=== PATIENT | female | born 1970 | race Caucasian/White ===

== ENCOUNTER 2017-02-23 13:22 | Emergency (ER) | payer MEDICAID, OTHER ==
[~2017-02-23] VITALS: Ht 154.9 cm; Wt 77.3 kg
[2017-02-23 13:48] VITALS: Ht 154.9 cm; Wt 77.3 kg
[2017-02-23] MEDS ORDERED: METOCLOPRAMIDE 10 MG INJ IV STA (13:55)
[2017-02-23] MEDS ORDERED: SOD CHLORIDE 0.9% 1,000 ML IV STA (13:55)
[2017-02-23] MEDS ORDERED: DIPHENHYDRAMINE 50 MG INJ IV ONE (14:00)
[2017-02-23] MEDS ORDERED: HYDR200T5 PO (14:22)
[2017-02-23] MEDS ORDERED: CEFTRIAXONE 1 GM/50 ML (PMX) 50 ML IVPB ONE (16:30)
--- NOTE | 2017-02-23 16:40 | RADRPT ---
PROCEDURE: CT Brain without contrast. CLINICAL INDICATION: Severe headache and vertigo. TECHNIQUE: A CT of the brain was performed on a multidetector CT scanner utilizing axial sections from the skull base through the vertex without contrast. Images were reviewed on a high-resolution [employer] workstation. Exam CTDI = 44.84 mGy and the DLP = 720.23 mGy-cm. One or more of the following dose reduction techniques were used: Automated exposure control Adjustment of the mA and/or kV according to patient size. Use of iterative reconstruction technique. COMPARISON: None available FINDINGS: There is no evidence of intracranial hemorrhage, mass effect or midline shift. No abnormal intra-ax ial or extra-axial fluid collections are seen. The density of the brain is normal and the silva/whit e matter differentiation is well preserved. The osseous structures are unremarkable. The paranasal sinuses are clear. IMPRESSION: 1. No intracranial hemorrhage, mass effect or midline shift. RPTAT: BB .Bev Birmingham MD, MD Date Time Electronically viewed and signed by .Bev Birmingham MD, on 02/23/2017 16:39 .O/
[2017-02-23] MEDS ORDERED: CIPR500T4 PO (17:07)
[2017-02-23] MEDS ORDERED: FIORICET PO (17:07)
[2017-02-23] MEDS ORDERED: PROC10TA10 PO (17:07)
--- NOTE | 2017-02-23 17:16 | ERD ---
ER Documentation Chief Complaint Chief Complaint ROACH X 3 DAYS, PMD SENT OVER DUE TO CONCERNS FOR POSS MENENGITIS HPI This 46 year old female presents with headache for the last 5 days. Began gradually got worse. Frontal headache that goes around both sides to the back of her head. She gets headaches fairly frequently and they often respond to Tylenol or ibuprofen. In this case. She also had vertigo 2 weeks ago which was resolved with meclizine from her primary care doctor. Primary care doctor said he was worried about meningitis. Patient has no neck stiffness and has had no fevers. ROS All systems reviewed and are negative except as per history of present illness. Medications Home Meds Active Scripts Prochlorperazine* (Prochlorperazine*) 10 Mg Tablet, 10 MG PO Q6H Y for NAUSEA, # 10 TAB Prov:RAISA XIAO DO 02/23/17 Acetamin/Butalbital/Caffeine* (Fioricet*) [id number] Tab, 1 TAB PO Q4H Y for HEADACHE, #14 TAB Prov:JENA XIAOUA DO 02/23/17 Ciprofloxacin Hcl* (Ciprofloxacin Hcl*) 500 Mg Tablet, 500 MG PO BID for 5 Days , TAB Prov:RAISA XIAO DO 02/23/17 Reported Medications Hydroxychloroquine Sulfate* (Plaquenil*) 200 Mg Tab, 200 MG PO DAILY, TAB 02/23/17 Allergies Allergies: Coded Allergies: No Known Allergy (Unverified , 02/23/17) PMhx/Soc History of Surgery: No Anesthesia Reaction: No Hx Neurological Disorder: No Hx Respiratory Disorders: No Hx Cardiac Disorders: Yes (HTN) Hx Psychiatric Problems: No Hx Miscellaneous Medical Probl: Yes (LUPUS) Hx Alcohol Use: No Hx Substance Use: No Hx Tobacco Use: No Smoking Status: Never smoker Physical Exam Vitals Vital Signs Date Time Temp Pulse Resp B/P Pulse Ox O2 Delivery O2 Flow Rate FiO2 02/23/17 13:48 97.6 64 16 187/88 100 Physical Exam Const: [] Moderate distress, appears uncomfortable Head: Atraumatic Eyes: Normal Conjunctiva EOMI, PERRLA ENT: Normal External Ears, Nose and Mouth. Neck: Full range of motion..~ No meningismus. Resp: Clear to auscultation bilaterally Cardio: Regular rate and rhythm, no murmurs Abd: Soft, non tender, non distended. Normal bowel sounds Skin: No petechiae or rashes Back: No midline or flank tenderness Ext: No cyanosis, or edema Neur: Awake and alert and oriented 3, cranial nerves II through XII intact, no cerebellar deficits finger-nose, normal gait no focal weakness Psych: Normal Mood and Affect Result Diagram: 02/23/17 1400 02/23/17 1400 Results 24 hrs Laboratory Tests Test 02/23/17 14:00 02/23/17 14:12 White Blood Count 9.310^3/ul Red Blood Count 5.3710^6/ul Hemoglobin 14.9g/dl Hematocrit 45.3% Mean Corpuscular Volume 84.4fl Mean Corpuscular Hemoglobin 27.7pg Mean Corpuscular Hemoglobin Concent 32.9g/dl Red Cell Distribution Width 13.5% Platelet Count 7010^3/UL Mean Platelet Volume 12.0fl Neutrophils % % Segmented Neutrophils % (Manual) 36% Lymphocytes % % Lymphocytes % (Manual) 59% Monocytes % % Monocytes % (Manual) 4% Eosinophils % % Eosinophils % (Manual) 1% Basophils % % Nucleated Red Blood Cells % 0.0/100WBC Neutrophils # 10^3/ul Absolute Lymphocytes (Manual) 5.410^3/ul Lymphocytes # 10^3/ul Monocytes # 10^3/ul Absolute Monocytes (Manual) 0.310^3/ul Eosinophils # 10^3/ul Basophils # 10^3/ul Nucleated Red Blood Cells # 10^3/ul Platelet Estimate DECREASED Platelet Morphology Comment @See below Sodium Level 144mmol/L Potassium Level 4.3mmol/L Chloride Level 110mmol/L Carbon Dioxide Level 20mmol/L Anion Gap 18 Blood Urea Nitrogen 19mg/dl Creatinine 0.91mg/dl Glucose Level 84mg/dl Calcium Level 9.3mg/dl Total Bilirubin 0.2mg/dl Direct Bilirubin 0.00mg/dl Indirect Bilirubin 0.2mg/dl Aspartate Amino Transf (AST/SGOT) 36IU/L Alanine Aminotransferase (ALT/SGPT) 33IU/L Alkaline Phosphatase 92IU/L Total Protein 9.4g/dl Albumin 4.6g/dl Globulin 4.80g/dl Albumin/Globulin Ratio 0.95 Urine Color YELLOW Urine Clarity CLEAR Urine pH 5.0 Urine Specific [place] 1.010 Urine Ketones NEGATIVEmg/dL Urine Nitrite POSITIVEmg/dL Urine Bilirubin NEGATIVEmg/dL Urine Urobilinogen NEGATIVEmg/dL Urine Leukocyte Esterase 1+Mer/ul Urine Microscopic RBC 1/HPF Urine Microscopic WBC 10/HPF Urine Bacteria MODERATE/HPF Urine Mucus FEW/HPF Urine Hemoglobin NEGATIVEmg/dL Urine Glucose NEGATIVEmg/dL Urine Total Protein NEGATIVEmg/dl Current Medications Medications (Trade) Dose Ordered Sig/Danni Route PRN Reason Start Time Stop Time Status Last Admin Dose Admin Sodium Chloride (NS) 1,000 ml @ 1,000 mls/hr Q1H STAT IV 02/23/17 13:55 02/23/17 14:54 DC 02/23/17 13:55 Metoclopramide HCl (Reglan) 10 mg ONCE STAT IV 02/23/17 13:55 02/23/17 13:57 DC 02/23/17 13:55 Diphenhydramine HCl 12.5 mg 12.5 mg ONCE ONCE IV 02/23/17 14:00 02/23/17 14:01 DC 02/23/17 14:59 Ceftriaxone Sodium (Rocephin) 50 ml @ 100 mls/hr ONCE ONCE IVPB 02/23/17 16:30 02/23/17 16:59 DC 02/23/17 16:07 Procedures/MDM Urinary tract infection with acute headache. Patient was given a liter of normal saline as well as 12.5 mg of IV Benadryl and 10 mg of Reglan as a migraine headache cocktail. This was completely resolved her headache. She is feeling much better. She is also given a gram of Rocephin. Head CT was performed because of frequent headaches with vertigo negative for abnormal mass or any acute process. Vital signs and laboratories are stable. I am going to discharge her with 5 days of ciprofloxacin. Also discharging with Fioricet and Compazine for headaches. Her care follow-up in 2-3 days and return precautions. I have printed her laboratories to take with her primary care doctor and address the thrombocytopenia. Strict return precautions to the ER. CT head interpretation: I see no acute process. I see no hemorrhage, no mass- effect, no midline shift. Patient also has no abnormal masses visible.. Departure Diagnosis: Primary Impression: Acute headache Additional Impressions: UTI (urinary tract infection) Thrombocytopenia Condition: Stable Patient Instructions: Understanding Urinary Tract Infections (UTIs), Headache, Unspecified Additional Instructions: Call your primary care doctor TOMORROW for an appointment during the next 2-3 days.See the doctor sooner or return here if your condition worsens before your appointment time. RAISA XIAO DO Feb 23, 2017 17:16
[2017-02-23 18:19] VITALS: BP 127/84; PULSE 67; RESP 16
== END 2017-02-23 18:20 | disposition home or self-care (01) ==
LOC: E/R 13:22
DX: R51 Headache (principal); N39.0 Urinary tract infection, site not specified; D69.6 Thrombocytopenia, unspecified; I10 Essential (primary) hypertension
CPT/HCPCS: 36415; 70450; 80053; 81001; 85025; 96374; 96375; J0696; J1200; J2765; J7030; Z7502